=== PATIENT | male | born 1950 | race Caucasian/White ===

== ENCOUNTER 2017-01-26 10:19 | Emergency (ER) | payer OTHER ==
[~2017-01-26] VITALS: Ht 188 cm; Wt 127.2 kg
[~2017-01-26 10:19] MED LIST: CLARITIN,ALAVAR10 MG PO; COREG25 M1 PO; KEFLEX500 MG PO; LIPITOR40 MG PO; PRAZOSIN HCL1 MG PO; PRILOSEC20 MG PO; SPIRONOLACTONE25 MG PO; ZOFRAN ODT4 MG PO; ZOLOFT100 MG PO; ZYLOPRIM300 MG PO
[2017-01-26 11:09] LABS: EOSINOPHIL (%) 0.7 % (0-5); IMMATURE GRANULOCYTE COUNT 0.1 K/uL; LYMPHOCYTE COUNT 1.6 K/uL (1.0-2.8); MCH 29.7 PG (29.0-34.0); MCHC 33.4 G/DL (30.0-36.0); MCV 88.8 FL (86-99); MEAN PLAT.VOLUME 12.2 uM^3 (9.0-12.4); MONOCYTE (%) 14.2 % (3-12); MONOCYTE COUNT 0.8 K/uL (0-0.8); NEUTROPHIL (%) 53.7 % (45-76); PLATELET COUNT 121 K/uL (156-360); RBC DIS.WIDTH-CV 14.6 % (11.8-14.6); RBC DIS.WIDTH-SD 46.9 % (39-53); RED BLOOD COUNT 3.94 M/uL (4.00-5.50); WHITE BLOOD COUNT 5.6 K/uL (4.1-10.2)
[2017-01-26 11:24] LABS: CHLORIDE 108 mEq/L (99-109); POTASSIUM 4.2 mEq/L (3.7-5.4); SODIUM 140 mEq/L (136-147)
[2017-01-26 11:25] LABS: GLUCOSE 93 mg/dL (70-99)
[2017-01-26 11:27] LABS: ANION GAP 9 MEQ/L (2-14)
[2017-01-26 11:29] LABS: GFR ESTIMATE (CALCULATED) > 59 mL/min/
[2017-01-26 11:30] LABS: UREA NITROGEN (BUN) 21 mg/dL (9-23)
[2017-01-26 11:40] VITALS: BP 148/95
== END 2017-01-26 11:42 | disposition home or self-care (01) ==
LOC: EME 10:19
PROVIDERS: Physician Assistant
DX: M77.8 Other enthesopathies, not elsewhere classified (principal); I10 Essential (primary) hypertension; I25.2 Old myocardial infarction; Z95.0 Presence of cardiac pacemaker; Z82.49 Family history of ischemic heart disease and other diseases of the circulatory system
CPT/HCPCS: 80048; 84550; 85025; 99281; 99283